=== PATIENT | female | born 1970 | race Caucasian/White ===

== ENCOUNTER → 2020-06-18 | Outpatient (CLI) | payer BC | LOC: GMA MATASK 16:32 | PROVIDERS: ATTEND Family Medicine | DX: Z13.29 Encounter for screening for other suspected endocrine disorder (principal); I10 Essential (primary) hypertension ==

== ENCOUNTER → 2020-08-27 | Outpatient (CLI) | payer BC ==
--- NOTE | 2020-08-30 20:00 | MAM ---
EXAM DESCRIPTION: 3D Screening BILATERAL : Digital Mammography. CLINICAL HISTORY: 49 years Female SCREENING . No complaints. Left breast implant rupture. No family history breast cancer. Menarche age 13. No childbirth. Premenopausal. No HRT. Bilateral breast augmentation. COMPARISON: Baseline study at this facility. Prior mammographic studies are not yet available for comparison. No prior reports available. TECHNIQUE: Bilateral CC and MLO projection full-field images, with Gail Implant Displacement digital tomosynthesis mammographic technique. Bilateral 2-D digital full-field images, MLO and CC projections, non-displaced. Bilateral digital 2-D full-field MLO images. Implant displaced. CAD available for 2-D images. FINDINGS: The breast parenchymal density pattern is: Scattered areas of fibroglandular density. No skin thickening or nipple retraction. Bilateral saline breast implant, subpectoral location. Left implant Rupture. Calcification densities seen in the central left implant. Folds are noted in the right breast implant but otherwise normal contour. Bilateral fibroglandular tissues are symmetrically located in the upper outer quadrants extending away from the retroareolar breast tissue. No focal, stellate mass or density, focal asymmetry , and no suspicious microcalcifications bilaterally. IMPRESSION: BI-RADS CATEGORY: 0 - INCOMPLETE- Need prior mammograms for comparison. RECOMMENDATIONS: FOLLOW-UP: Comparison with prior examination(s) when available. Written communication explaining the results and follow-up will be mailed to the patient and referring care provider. Electronically signed by: Roderick Joseph MD 08/30/2020 7:59 PM CDT
== END ==
LOC: MAMMO 14:45
PROVIDERS: ATTEND Obstetrics & Gynecology
DX: Z12.31 Encounter for screening mammogram for malignant neoplasm of breast (principal)